=== PATIENT | female | born 1965 | race Caucasian/White ===

== ENCOUNTER 2018-08-05 20:35 | Emergency (ER) | payer OTHER, SELFPAY ==
[2018-08-05 20:37] VITALS: BP 131/69; PULSE 70; PULSE 72; RESP 17; RESP 18; TEMP 36.8; O2SAT 100; BMI 20.9
[2018-08-05 21:04] LABS: Absolute Lymphocyte Count 1.34 X10^3/ul (0.83-4.51); Absolute Neutrophil Count 1.8 X10^3/uL (2.0-7.7); Basophil# 0.01 X10^3/uL; Basophil% 0.3 % (0-1); Eosinophil# 0.12 X10^3/uL; Eosinophils% 3.5 % (0-5); Hematocrit 39.9 % (37-47); Hemoglobin 13.1 g/dl (12.0-15.0); Lymphocyte # 1.34 X10^3/ul (4.0); Lymphocyte % 39.1 % (19-41); Mean Corp Hgb Conc 32.8 g/gl (32-36); Mean Corpuscular Hgb 31.5 pg (27.0-32.0); Mean Corpuscular Volume 95.9 fL (81-99); Mean Platelet Vol. 11.8 fl (6.2-12.0); Monocyte# 0.13 X10^3/uL; Monocyte% 3.8 % (0-10); Neutrophil # 1.83 X10^3/uL (2.7-7.7); Neutrophil % 53.3 % (47-70); Platelet Count 133 K/mm3 (150-450); RBC Distribution Width CV 13.5 % (11.6-14.6); RBC Distribution Width SD 46.9 fl (35.1-43.9); Red Blood Count 4.16 M/mm3 (4.2-5.4); White Blood Count 3.4 K/mm3 (4.4-11.0)
[2018-08-05 21:05] LABS: POSITIVE COUNT NO; POSITIVE DIFFERENTIAL NO; POSITIVE MORPHOLOGY NO
[2018-08-05 21:29] LABS: Anion Gap 6 (5-15); BUN 23 mg/dL (7-18); BUN/Creat Ratio 28.3 RATIO (10-20); Calcium,Total 8.8 mg/dL (8.5-10.1); Chloride 104 mmol/L (98-107); Creatinine, Serum 0.81 mg/dL (0.55-1.02); EST Glomerular Filtration Rate 79 mL/min (>60); Est Glom Filt Rate - Afr Amer 96 mL/min (>60); Estimated Creatinine Clearance 68.73 ml/min; Glucose 92 mg/dL (74-106); Potassium 3.8 mmol/L (3.5-5.1); Sodium Level 140 mmol/L (136-145)
[2018-08-05 21:36] LABS: Bacteria 0 SEEN /hpf (None Seen); Mucous, Urine 0 SEEN /hpf (<or=2+); Red Blood Cells-Urine 0 SEEN /hpf (0-5)
[2018-08-05 21:40] LABS: Color, Urine Straw (Yellow); Glucose, Dipstick Normal (Normal); Ketone-Dipstick Negative (Negative); Leukocyte Esterase-Dipstick 25 /ul (Negative); Nitrite-Dipstick Negative (Negative); Occult Blood-Urine Negative /ul (Negative); Protein-Dipstick Negative (Negative); Urine Bilirubin Dipstick Negative (Negative); Urine Clarity Clear (Clear); Urine Urobilinogen Normal (Normal)
[2018-08-05 21:51] LABS: Squamous Epithelial Cells - UA 0-5 SEEN /hpf (5-10)
[2018-08-05 21:52] LABS: White Blood Cells 0-5 SEEN /hpf (0-5)
--- NOTE | 2018-08-05 21:59 | CT_ITS ---
STUDY: CT ABDOMEN AND PELVIS WITH CONTRAST REASON FOR EXAM: Female, 52 years old. Upper abdominal pain prior cholecystectomy RADIATION DOSAGE (If Supplied By Facility): CTDIvol = ( 10.89 ) mGy, DLP = ( 412.26 ) mGycm TECHNIQUE: Transaxial images were obtained from the dome of the diaphragm to the symphysis pubis with oral contrast. 100ML ml of Isovue 300 contrast was administered. Sagittal and coronal images were reconstructed. Individualized dose optimization techniques were used for this CT. COMPARISON: None. FINDINGS: The lungs are hyperinflated. The visualized portions of the heart are within normal limits. There is intra and extrahepatic ductal dilatation. The gallbladder is been removed. The common duct measures up to 9.2 mm and is distended to the level of the pancreas/sphincter of [place]. There is also distention of the pancreatic duct. Normal gallbladder and extrahepatic biliary system. Normal spleen. Normal pancreas. Normal bilateral adrenal glands. Normal right kidney. Normal left kidney. Normal visualized stomach. There are contrast filled low-lying loops of small bowel present. There is torturous appearance of the bowel which is partially gas-filled and stool-filled throughout. There is non-visualization of the appendix. Normal abdominal aorta. There is venous distention of the inferior vena cava (IVC). There are nonspecific periaortic lymph nodes. Normal urinary bladder. Normal visualized uterus. There is diastases of the rectus muscle and a bulging stool filled loop of large bowel. There are bilateral degenerative changes of the visualized lumbar spine. CT/Abdomen/Pelvis WITH Contrast IMPRESSION: Constipation. Significant intra and extra hepatic ductal dilatation status post cholecystectomy. Recommend consideration for follow-up ultrasound and/or potentially ERCP. Electronically Signed: Kelly Yang MD at 0:30 EST Tel , Service support ,
[2018-08-05] MEDS: Ondansetron 4 MG/2 ML Vial IV (22:24)
[2018-08-05] MEDS: Morphine 4 MG/ML Syringe IV (22:24)
--- NOTE | 2018-08-05 22:24 | ED.DCSUM_ITS ---
- ER Visit Summary Date of Service: 08/05/18 Chief Complaint: Abdominal pain History of Present Illness: The patient is a 52 F presenting with abdominal pain. Patient states that this started around 2 PM this afternoon. She has pain in the left upper quadrant. She denies nausea, vomiting, diarrhea. Denies urinary complaints. Denies fever. Denies chest pain or shortness of breath. She has had similar symptoms in the past with gastritis. She is not currently on any medications. Physical Examination: Vitals are stable. Patient is afebrile. Alert no acute distress. HEENT exam is unremarkable. Neck is supple. Lungs are clear and equal bilaterally. Heart is regular rate and rhythm. Abdomen is soft left upper quadrant tenderness with no rebound or guarding Extremities are unremarkable. Skin is warm and dry. Remainder of exam is unremarkable. Emergency Department Course and Treatment: Patient given morphine, Zofran IV. She was given GI cocktail. CBC shows white count 3.4, platelet 133. No old platelet count to compare to. She is advised to follow-up with her primary care physician. Chemistries show BUN 23. Liver enzymes show total bili 1.10. Lipase is normal. Urinalysis unremarkable. CT abdomen pelvis with IV and oral contrast shows constipation, significant intra-and extra hepatic ductal dilatation status post cholecystectomy. Recommend consideration for follow-up ultrasound and/or potentially ERCP. On reexamination, patient has mild left upper quadrant tenderness with no right upper quadrant tenderness. She is advised to follow-up with Dr. Worley. She is given prescription for MiraLAX and Pepcid. Advised return to the ED for worsening complaints. Disposition: Discharge home Impression: Abdominal pain, constipation This note was generated with [employer] dictation software. It may contain incorrect words, spelling, and punctuation that were not noted in review of the chart prior to signing ED Disposition - Plan for ED Patient: Chief Complaint: Abd Pain Instructions: ED Abdominal Pain Unkn Cause Prescriptions: Polyethylene Glycol 3350 [Miralax] 17 gm PO DAILY #14 packet Famotidine [Pepcid] 20 mg PO BID #28 tablet Referrals: Javad Worley MD [STAFF PHYSICIAN] - Alexander Santos MD [Primary Care Provider] -
[2018-08-05 22:26] LABS: AST(SGOT) 19 U/L (15-37); Alanine Aminotransfer ALT/SGPT 44 U/L (13-56); Albumin, Serum 4.2 g/dL (3.2-5.0); Alkaline Phosphatase 93 U/L (45-117); Bilirubin, Direct 0.21 mg/dL (0.00-0.30); Globulin 3.7 g/dL (2.2-4.2); Protein, Total 7.9 g/dL (6.4-8.2)
[2018-08-05 22:33] LABS: Lipase 133 U/L (73-393)
[2018-08-06 00:23] VITALS: BP 102/63; PULSE 65; RESP 16; O2SAT 99
[2018-08-06] MEDS: Morphine 4 MG/ML Syringe IV (00:30)
--- NOTE | 2018-08-06 00:51 | ED.DEP ---
ED Disposition - Plan for ED Patient: Chief Complaint: Abd Pain Instructions: ED Abdominal Pain Unkn Cause Prescriptions: Polyethylene Glycol 3350 [Miralax] 17 gm PO DAILY #14 packet Famotidine [Pepcid] 20 mg PO BID #28 tablet Referrals: Alexander Santos MD [Primary Care Provider] - Javad Worley MD [STAFF PHYSICIAN] -
[2018-08-06] MEDS: Mag Hydrox/Al Hydrox/Simeth 30 ML UDC PO (01:44)
[2018-08-06 02:04] VITALS: BP 102/70; PULSE 66; RESP 16; O2SAT 97
== END 2018-08-06 02:33 | disposition home or self-care (01) ==
LOC: ED 22:10
PROVIDERS: Emergency Provider Emergency Medicine; Family Provider Family Medicine; PCP Family Medicine
DX: K59.00 Constipation, unspecified (principal); R10.12 Left upper quadrant pain; Z90.49 Acquired absence of other specified parts of digestive tract; Z90.722 Acquired absence of ovaries, bilateral
CPT/HCPCS: 74177; 80048; 80076; 81001; 83690; 85025; 96374; 96375; 96376; 99283; Q9967; A4216; J2405

== ENCOUNTER → 2018-09-03 08:45 | Outpatient (CLI) | payer OTHER, SELFPAY ==
[2018-09-03 08:31] VITALS: BMI 20.9
[2018-09-03 09:29] LABS: AST(SGOT) 21 U/L (15-37); Alanine Aminotransfer ALT/SGPT 47 U/L (13-56); Alkaline Phosphatase 95 U/L (45-117); Bilirubin, Direct 0.19 mg/dL (0.00-0.30); Globulin 3.8 g/dL (2.2-4.2); Protein, Total 7.8 g/dL (6.4-8.2)
== END ==
PROVIDERS: Family Provider Family Medicine; PCP Family Medicine; Referring Provider Surgery; Visit Provider Surgery
DX: K83.8 Other specified diseases of biliary tract (principal)
CPT/HCPCS: 36415; 80076